=== PATIENT | female | born 1965 | race Caucasian/White ===

== ENCOUNTER 2017-02-13 13:37 | Emergency (ER) | payer SELFPAY ==
[~2017-02-13] VITALS: Ht 175.3 cm; Wt 82.7 kg
[~2017-02-13 13:37] MED LIST: ALBU1AER INH; ALBU8I INH; LORA-392 PO; MEDR4PAK3 PO; ZITH250T PO
[2017-02-13 13:41] VITALS: BP 216/91; PULSE 83; RESP 16; TEMP 97.8; O2SAT 100
[2017-02-13] MEDS ORDERED: MORPHINE SULFATE 4 MG/ML INJ IM ONE (14:00)
[2017-02-13] MEDS ORDERED: cloNIDine HCL 0.2 MG TAB PO ONE (14:00)
[2017-02-13] MEDS ORDERED: ONDANSETRON ODT 4 MG TAB PO ONE (14:00)
[2017-02-13] MEDS ORDERED: LISI-515 PO (14:04)
[2017-02-13] MEDS ORDERED: VENTAER INH (14:04)
[2017-02-13] MEDS ORDERED: LORA-392 PO (14:04)
--- NOTE | 2017-02-13 14:11 | PD ---
HPI Chief Complaint: Musculoskeletal Complaint Time Seen by Provider: 13:57 Travel History International Travel<30 days: No Contact w/Intl Traveler<30days: No Traveled to known affect area: No History of Present Illness HPI The patient was seen and examined in the presence of the nurse. This patient complains of left rib pain. 13 hours ago she slipped while getting out of a pool and hit her left side ribs on the side of the pool. She has pain worse with deep breath or movement. Severity is moderate. No alleviating factors. PFSH Past Medical History Asthma: Yes Anxiety: Yes Diminished Hearing: No Endocrine: Yes Gastrointestinal Disorders: No Immune Disorder: No Implanted Vascular Access Dvce: No Respiratory: Yes (ASTHMA) Thyroid Disease: Yes (THYROID BIOPSY) Tetanus Vaccination: < 5 Years PNEUMOCCOCAL Vaccine (Year): 2 ?: Not Menopausal: No : 2 Para: 2 Miscarriage: 0 : 0 Tubal Ligation: Yes Past Surgical History Gynecologic Surgery: Yes (CYST REMOVED FROM [facility]) Other Surgery: Yes Social History Alcohol Use: Yes (SOCIALLY) Tobacco Use: Yes (1PPD) Substance Use: No Allergies-Medications (Allergen,Severity, Reaction): Coded Allergies: sulfamethoxazole (Unverified Allergy, Severe, rash, swelling of tongue, sob, 02/13/17) trimethoprim (Unverified Allergy, Severe, rash, swelling of tongue, sob, ) codeine (Unverified Allergy, Intermediate, FACE SWELLS, 02/13/17) tramadol (Unverified Adverse Reaction, Intermediate, VOMITING, 02/13/17) Reported Meds & Prescriptions Reported Meds & Active Scripts Active Reported Lisinopril 20 Mg Tab 20 Mg PO DAILY Ativan (Lorazepam) 0.5 Mg Tab 0.5 Mg PO BID PRN Ventolin Hfa 18 GM Inh (Albuterol Sulfate) 90 Mcg/Act Aer 2 Puff INH Q4-6H PRN Review of Systems General / Constitutional: No: Fever Eyes: No: Visual changes HENT: No: Headaches Cardiovascular: Positive: Chest Pain or Discomfort Respiratory: No: Shortness of Breath Gastrointestinal: No: Abdominal Pain Genitourinary: No: Dysuria Musculoskeletal: Positive: Pain Skin: No Rash Neurologic: No: Weakness Psychiatric: No: Depression Endocrine: No: Polydipsia Hematologic/Lymphatic: No: Easy Bruising Physical Exam Narrative GENERAL: Well-nourished, well-developed patient with left sided rib pain. SKIN: Focused skin assessment reveals no rash and nodules. Skin is Warm and dry. HEAD: Atraumatic. Normocephalic. EYES: Pupils equal and round. No scleral icterus. No injection or drainage. ENT: No nasal bleeding or discharge. Mucous membranes pink and moist. NECK: Trachea midline. No JVD. CARDIOVASCULAR: Regular rate and rhythm. No murmur appreciated. RESPIRATORY: No accessory muscle use. Clear to auscultation. Breath sounds equal bilaterally. GASTROINTESTINAL: Abdomen soft, non-tender, nondistended. Hepatic and splenic margins not palpable. MUSCULOSKELETAL: No obvious deformities. No clubbing. No cyanosis. No edema. Patient has a lot of chest wall tenderness underneath the left breast in the midclavicular and anterior axillary line. There is no peritonsillar rib movement or crepitus or bruising. NEUROLOGICAL: Awake and alert. No obvious cranial nerve deficits. Motor grossly within normal limits. Normal speech. PSYCHIATRIC: Appropriate mood and affect; insight and judgment normal. Data Data Last Documented VS Vital Signs Date Time Temp Pulse Resp B/P (MAP) Pulse Ox O2 Delivery O2 Flow Rate FiO2 02/13/17 13:41 97.8 83 16 216/91 (132) 100 Orders Orders Chest, Single Ap (02/13/17 ) Clonidine (Catapres) (02/13/17 14:00) Morphine Inj (Morphine Inj) (02/13/17 14:00) Ondansetron Odt (Zofran Odt) (02/13/17 14:00) [facility] Medical Decision Making Medical Screen Exam Complete: Yes Emergency Medical Condition: Yes Medical Record Reviewed: Yes Differential Diagnosis Rib fracture, pneumothorax, contusion, accelerated hypertension Narrative Course I have reviewed the patient's electronic medical record. Patient's blood pressure 216 systolic. She did not take her medication today I gave her dose of clonidine I gave her dose of Zofran and morphine for symptom relief I reviewed her chest x-ray which is normal Advised her to check and record blood pressure daily Diagnosis Primary Impression: Contusion of rib on left side Qualified Codes: S20.212A - Contusion of left front wall of thorax, initial encounter Additional Impression: Accelerated hypertension Additional Instructions: The patient was advised to follow up with their physician and return if they worsen. Med/Other Pt SpecificInfo: Other Disposition: 01 DISCHARGE HOME Condition: Stable Santiago Griggs MD Feb 13, 2017 14:11
--- NOTE | 2017-02-13 14:28 | RADRPT ---
EXAM DATE/TIME: 02/13/2017 14:08 [place] COMPARISON: No previous studies available for comparison. INDICATIONS : Left anteriror chest/rib pain post slip & fall onto side of pool. MEDICAL HISTORY : Chronic obstructive pulmonary disease. Thyroid disease. Sleep apnea. Asthma. Diabetic.Smoker. SURGICAL HISTORY : Tubal ligation. ENCOUNTER: Initial ACUITY: 1 day PAIN SCORE: 10/10 LOCATION: Left anterior chest FINDINGS: A single view of the chest demonstrates the lungs to be symmetrically aerated without evidence of mas s, infiltrate or effusion. The cardiomediastinal contours are unremarkable. Osseous structures are intact. CONCLUSION: No acute disease. Alejandro Sexton MD FACR on February 13, 2017 at 14:26 Board Certified Radiologist. This report was verified electronically.
== END 2017-02-13 15:05 | disposition home or self-care (01) ==
LOC: PHED 13:37
DX: S20.212A Contusion of left front wall of thorax, initial encounter (principal); I10 Essential (primary) hypertension; E07.9 Disorder of thyroid, unspecified; F17.200 Nicotine dependence, unspecified, uncomplicated; Z87.09 Personal history of other diseases of the respiratory system; Z86.59 Personal history of other mental and behavioral disorders; X58.XXXA Exposure to other specified factors, initial encounter; Y92.34 Swimming pool (public) as the place of occurrence of the external cause
CPT/HCPCS: 71010; 96372; 99284; J2270

== ENCOUNTER 2017-03-30 20:22 | Emergency (ER) | payer SELFPAY ==
[~2017-03-30] VITALS: Ht 175.3 cm; Wt 81.0 kg
[~2017-03-30 20:22] MED LIST changes: -ALBU1AER INH; -ALBU8I INH; +LISI-515 PO; -MEDR4PAK3 PO; +VENTAER INH; -ZITH250T PO
[2017-03-30 20:38] VITALS: BP 178/92; PULSE 70; RESP 16; TEMP 98.2; O2SAT 97
[2017-03-30] MEDS ORDERED: diphenhydrAMINE HCL 50 MG/ML VIAL IM ONE (22:15)
[2017-03-30] MEDS ORDERED: [UNRECOGNIZED DRUG - CODE] TOPICAL (22:18)
--- NOTE | 2017-03-30 22:18 | PD ---
HPI . Generalized red itchy rash Chief Complaint: Skin Problem Time Seen by Provider: 21:45 Travel History International Travel<30 days: No Contact w/Intl Traveler<30days: No Traveled to known affect area: No History of Present Illness HPI 51-year-old female presents emergency department for evaluation of generalized red itchy rash. Patient denies any fevers, chills, chest pain, shortness breath. Patient states the rash started in her right lower leg and is extending upward onto her back and her upper extremities. Patient describes the rash has incredibly itchy. Patient states she is currently looking for a place to live and has stayed at many people's homes lately. PFSH Past Medical History Asthma: Yes Anxiety: Yes Diminished Hearing: No Endocrine: Yes Gastrointestinal Disorders: No Hypertension: Yes Immune Disorder: No Implanted Vascular Access Dvce: No Respiratory: Yes (ASTHMA) Immunizations Current: No Thyroid Disease: Yes (THYROID BIOPSY) Tetanus Vaccination: < 5 Years Influenza Vaccination: No PNEUMOCCOCAL Vaccine (Year): 2 ?: Not Menopausal: No : 2 Para: 2 Miscarriage: 0 : 0 Tubal Ligation: Yes Past Surgical History Gynecologic Surgery: Yes (CYST REMOVED FROM [facility]) Other Surgery: Yes (THYROID BX) Social History Alcohol Use: Yes (SOCIALLY) Tobacco Use: Yes (1PPD) Substance Use: No Allergies-Medications (Allergen,Severity, Reaction): Coded Allergies: sulfamethoxazole (Unverified Allergy, Severe, rash, swelling of tongue, sob, 03/30/17) trimethoprim (Unverified Allergy, Severe, rash, swelling of tongue, sob, 03/30/17) codeine (Unverified Allergy, Intermediate, FACE SWELLS, 03/30/17) tramadol (Unverified Adverse Reaction, Intermediate, VOMITING, 03/30/17) Reported Meds & Prescriptions Reported Meds & Active Scripts Active Reported Lisinopril 20 Mg Tab 20 Mg PO DAILY Ativan (Lorazepam) 0.5 Mg Tab 0.5 Mg PO BID PRN Review of Systems Except as stated in HPI: all other systems reviewed are Neg Physical Exam Narrative GENERAL: Well-nourished, well-developed pleasant 51-year-old female patient that appears anxious. Nontoxic appearing. SKIN: Generalized red papular spots covering both lower legs, trunk and back and upper arms. No purulent discharge, erythema or edema noted. HEAD: Normocephalic. Atraumatic. EYES: No scleral icterus. No injection or drainage. NECK: Supple, trachea midline. No JVD or lymphadenopathy. CARDIOVASCULAR: Regular rate and rhythm without murmurs, gallops, or rubs. RESPIRATORY: Breath sounds equal bilaterally. No accessory muscle use. GASTROINTESTINAL: Abdomen soft, non-tender, nondistended. MUSCULOSKELETAL: No cyanosis, or edema. BACK: Nontender without obvious deformity. No CVA tenderness. Data Data Last Documented VS Vital Signs Date Time Temp Pulse Resp B/P (MAP) Pulse Ox O2 Delivery O2 Flow Rate FiO2 03/30/17 20:38 98.2 70 16 178/92 (120) 97 Orders Orders Diphenhydramine Inj (Benadryl Inj) (03/30/17 22:15) [facility] Medical Decision Making Medical Screen Exam Complete: Yes Emergency Medical Condition: Yes Differential Diagnosis Differential diagnoses include but not limited to bug bites, allergic dermatitis , contact dermatitis Narrative Course 51-year-old female presented to the emergency department for evaluation of generalized papular areas of erythema. Patient denies any fever, chills, malaise. Patient is currently looking for a place to stay and has been staying at multiple different areas every night. The areas of erythema are consistent with bedbug bites. There are no signs or symptoms of secondary infection at this time. Patient will be given an IM injection of Benadryl to help subside the extreme itchiness she feels and she will be discharged home with a topical steroid and instructions to follow-up with primary care. Diagnosis Primary Impression: Bed bug bite Qualified Codes: W57.XXXA - Bitten or stung by nonvenomous insect and other nonvenomous arthropods, initial encounter Referrals: Primary Care Physician Patient Instructions: Bed Bugs (ED), General Instructions Additional Instructions: Please return to emergency department if your symptoms return or worsen. Follow up with your primary care provider. Take medications as prescribed. Med/Other Pt SpecificInfo: Prescription(s) given Scripts Fluticasone Topical (Fluticasone Topical) 0.05% Cream 1 APPLIC TOPICAL TID for Rash/Inflammation for 7 Days, #15 GM 0 Refills Prov: Beba Al 03/30/17 Disposition: 01 DISCHARGE HOME Condition: Stable Beba Al Mar 30, 2017 22:18
== END 2017-03-30 22:29 | disposition home or self-care (01) ==
LOC: PHED 20:22 → PHEFT 22:29
DX: S80.862A Insect bite (nonvenomous), left lower leg, initial encounter (principal); S80.861A Insect bite (nonvenomous), right lower leg, initial encounter; S40.862A Insect bite (nonvenomous) of left upper arm, initial encounter; S40.861A Insect bite (nonvenomous) of right upper arm, initial encounter; S30.860A Insect bite (nonvenomous) of lower back and pelvis, initial encounter; W57.XXXA Bitten or stung by nonvenomous insect and other nonvenomous arthropods, initial encounter
CPT/HCPCS: 96372; 99284; J1200

== ENCOUNTER 2017-04-01 14:54 | Emergency (ER) | payer SELFPAY ==
[~2017-04-01] VITALS: Ht 175.3 cm; Wt 81.0 kg
[~2017-04-01 14:54] MED LIST changes: -VENTAER INH; +[UNRECOGNIZED DRUG - CODE] TOPICAL
[2017-04-01 14:58] VITALS: BP 183/94; PULSE 87; RESP 16; TEMP 97.7; O2SAT 97
[2017-04-01] MEDS ORDERED: DIPH25CA PO (15:11)
[2017-04-01] MEDS ORDERED: hydrOXYzine HCL 50 MG/ML VIAL IM ONE (15:45)
[2017-04-01] MEDS ORDERED: DEXAMETHASONE SOD PHOS 4 MG/ML VIAL IM ONE (15:45)
[2017-04-01] MEDS ORDERED: VIST50CA PO (15:54)
[2017-04-01] MEDS ORDERED: PRED20 PO (15:54)
--- NOTE | 2017-04-01 15:54 | PD ---
HPI Chief Complaint: Allergic/Adverse Reaction Time Seen by Provider: 15:45 Travel History International Travel<30 days: No Contact w/Intl Traveler<30days: No Traveled to known affect area: No History of Present Illness HPI This 51-year-old female is complaining of an itchy rash. She was in the emergency department yesterday and it was thought at that time that this may represent bedbugs. She was given prescription for steroid cream. This does not help much. She continues to have a lot of itching and pain. She does not believe that she is been exposed to bedbugs. She does clean houses. She doesn' t have a history of anxiety and takes Ativan. PFSH Past Medical History Asthma: Yes Anxiety: Yes Diminished Hearing: No Endocrine: Yes Gastrointestinal Disorders: No Hypertension: Yes Immune Disorder: No Implanted Vascular Access Dvce: No Respiratory: Yes (ASTHMA) Immunizations Current: No Thyroid Disease: Yes (THYROID BIOPSY) Tetanus Vaccination: < 5 Years PNEUMOCCOCAL Vaccine (Year): 2 ?: Not LMP: LAST MONTH Menopausal: No : 2 Para: 2 Miscarriage: 0 : 0 Tubal Ligation: Yes Past Surgical History Gynecologic Surgery: Yes (CYST REMOVED FROM [facility]) Other Surgery: Yes (THYROID BX) Social History Alcohol Use: Yes (2 drinks daily) Tobacco Use: Yes (1-2 PPD) Substance Use: Yes (THC weekly) Allergies-Medications (Allergen,Severity, Reaction): Coded Allergies: sulfamethoxazole (Verified Allergy, Severe, rash, swelling of tongue, sob , 04/01/17) trimethoprim (Verified Allergy, Severe, rash, swelling of tongue, sob, ) codeine (Verified Allergy, Intermediate, FACE SWELLS, 04/01/17) tramadol (Verified Adverse Reaction, Intermediate, VOMITING, 04/01/17) Reported Meds & Prescriptions Reported Meds & Active Scripts Active Fluticasone Topical (Fluticasone Propionate) 0.05% Cream 1 Applic TOPICAL TID 7 Days Reported Diphenhydramine (Diphenhydramine HCl) 25 Mg Cap 50 Mg PO Q6H PRN Lisinopril 20 Mg Tab 20 Mg PO DAILY Ativan (Lorazepam) 0.5 Mg Tab 0.5 Mg PO BID PRN Review of Systems General / Constitutional: No: Fever, Chills Eyes: No: Diploplia HENT: No: Headaches Cardiovascular: No: Chest Pain or Discomfort, Palpitations Respiratory: No: Cough Gastrointestinal: No: Vomiting, Diarrhea Genitourinary: No: Urgency Musculoskeletal: No: Myalgias Skin: Positive Rash, Positive Itching Neurologic: No: Weakness Endocrine: No: Heat Intolerance Hematologic/Lymphatic: No: Easy Bruising Physical Exam Narrative GENERAL: Well-developed female complaining of severe itching and pain SKIN: Focused skin assessment warm/dry. Multiple erythematous macular lesions that have the appearance of insect bites. Also scattered areas of urticaria HEAD: Atraumatic. Normocephalic. EYES: Pupils equal and round. No scleral icterus. No injection or drainage. ENT: No nasal bleeding or discharge. Mucous membranes pink and moist. NECK: Trachea midline. No JVD. CARDIOVASCULAR: Regular rate and rhythm. No murmur appreciated. RESPIRATORY: No accessory muscle use. Clear to auscultation. Breath sounds equal bilaterally. GASTROINTESTINAL: Abdomen soft, non-tender, nondistended. Hepatic and splenic margins not palpable. MUSCULOSKELETAL: No obvious deformities. No clubbing. No cyanosis. No edema. NEUROLOGICAL: Awake and alert. No obvious cranial nerve deficits. Motor grossly within normal limits. Normal speech. PSYCHIATRIC: Very anxious Data Data Last Documented VS Vital Signs Date Time Temp Pulse Resp B/P (MAP) Pulse Ox O2 Delivery O2 Flow Rate FiO2 04/01/17 14:58 97.7 87 16 183/94 (123) 97 Orders Orders Hydroxyzine Hcl Inj (Vistaril Inj) (04/01/17 15:45) Dexamethasone Inj (Decadron Inj) (04/01/17 15:45) [facility] Medical Decision Making Medical Screen Exam Complete: Yes Emergency Medical Condition: Yes Medical Record Reviewed: Yes Differential Diagnosis Differential includes allergic reaction, multiple bug bites Narrative Course Patient is quite uncomfortable with the itching. This does not have the appearance of cellulitis or infection. Does not appear consistent with scabies. I will prescribe steroids and Vistaril for itch Diagnosis Primary Impression: Allergic reaction Qualified Codes: T78.40XD - Allergy, unspecified, subsequent encounter Scripts Prednisone (Prednisone) 20 Mg Tab 20 MG PO DIRECTED, #24 TAB 0 Refills Take 60 MG daily x 4 days, then 40 MG x 4 days, then 20 MG daily x 4 days. Prov: Rui Newton MD 04/01/17 Hydroxyzine Pamoate (Vistaril) 50 Mg Cap 50 MG PO QID Y for ITCHING, #20 CAP 0 Refills Prov: Rui Newton MD 04/01/17 Disposition: 01 DISCHARGE HOME Condition: Stable Rui Newton MD Apr 01, 2017 15:54
== END 2017-04-01 16:36 | disposition home or self-care (01) ==
LOC: PHED 14:54
DX: T78.40XD Allergy, unspecified, subsequent encounter (principal); R21 Rash and other nonspecific skin eruption; L29.9 Pruritus, unspecified; I10 Essential (primary) hypertension; E07.9 Disorder of thyroid, unspecified; F17.200 Nicotine dependence, unspecified, uncomplicated; Z87.09 Personal history of other diseases of the respiratory system; Z86.59 Personal history of other mental and behavioral disorders
CPT/HCPCS: 96372; 99284; J1100; J3410